=== PATIENT | female | born 1985 | race Caucasian/White ===

== ENCOUNTER 2017-04-06 15:57 | Inpatient (IN) ==
[2017-04-06] MEDS ORDERED: DINOPROSTONE VAG GEL 10 MG SYRINGE VAG ONE (16:19)
[2017-04-06] MEDS ORDERED: ONDANSETRON 4 MG/2 ML VIAL IV PRN ×2 (16:21→23:45)
[2017-04-06] MEDS ORDERED: MEPERIDINE 50 MG/1 ML VIAL IV PRN (16:21)
[2017-04-06] MEDS ORDERED: LACTATED RINGERS 500 ML IV PRN (16:21)
[2017-04-06] MEDS ORDERED: BUTORPHANOL 2 MG/ML VIAL IV PRN (16:21)
[2017-04-06] MEDS: LACTATED RINGERS 1,000 ML IV SCH ×2 (16:45→21:46)
[2017-04-06 16:52] LABS: Basophils # 0.1 10*3/uL (0.0-0.2); Basophils % 0.4 % (0.0-0.8); Eosinophils # 0.1 10*3/uL (0.0-0.87); Eosinophils % 0.9 % (0.00-10.9); Hemoglobin 11.8 GM/DL (12.0-16.0); Immature Granulocytes % 0.5 %; Immature Granulocytes Absolute 0.06 #; Lymphocytes # 2.4 10*3/uL (1.4-4.0); Lymphocytes % 21.2 % (21.3-54.2); Mean Corpuscular HGB Conc 33.7 GM/DL (32-36); Mean Corpuscular Hemoglobin 29 PG (27-34); Mean Corpuscular Volume 87.1 FL (87-102); Monocytes # 1.6 10*3/uL (0.11-0.8); Neutrophils # 7.1 10*3/uL (1.4-7.4); Platelet Count 263 T/CUMM (130-400); Red Blood Count 4.02 MC/CUMM (3.8-5.5); Red Cell Distribution Width 13.9 % (9.3-17.3); White Blood Count 11.3 T/CUMM (4-12)
[2017-04-06 17:24] LABS: Alanine Aminotransferase 11 U/L (13-56); Albumin 2.4 G/DL (3.4-5.0); Alkaline Phosphatase 151 U/L (45-117); Aspartate Amino Transferase 19 U/L (0-37); Bilirubin,Total < 0.39 MG/DL (0.2-1.0); Calcium 8.3 MG/DL (8.5-10.1); Total Protein 5.9 G/DL (6.4-8.3)
[2017-04-06 17:25] LABS: Blood Urea Nitrogen 8 MG/DL (7-18); Glucose 86 MG/DL (74-106); Osmolality,Calculated 275.4 MOS/KG (273-304); Sodium 140 MMOL/L (136-145)
--- NOTE | 2017-04-06 18:09 | OB/GYN History & Physical ---
History of Present Illness Chief complaint: In for elective induction of labor due to term . History of present illness: Ms. Sorto is a 32 year old female 3 para 1 AB 1. STEPHANIA is 04/13/2017 for estimated gestational age of 39 weeks. The patient presents for elective induction of labor due to term . The risk and benefits of been thoroughly discussed with this patient and significant other, plan of care has been discussed with Dr. Sheikh and all parties are in agreement plan. The patient received her care at the [facility] and she received routine care, her course was uneventful. Patient has had a previous vaginal delivery at 37 weeks of a liveborn that weighed 6 pounds and 8 ounces, she reported no complications with that . labs: She is O+, RPR is nonreactive, hepatitis B is negative, HIV is negative, rubella is immune, GBS culture is negative. Review of systems is negative with exception of above. Home Medications Medication Instructions Recorded Confirmed Type Vit No.130/Iron/Folic 1 each PO DAILY 04/06/17 04/06/17 History [ Vitamins] Allergies Allergy/AdvReac Type Severity Reaction Status Date / Time No Known Allergies Allergy Verified 04/06/17 16:19 12 point system: reviewed and no additional remarkable complaints except as stated Medical,Surgical,& Family Hx - Medical History Medical History: noncontributory Respiratory: History of: Asthma - Surgical History Surgical History: noncontributory Reproductive Surgeries: Patient denies;: Genitourinary Surgery - Family History Family History: Reports;: Family Cancer (mother- breast, melanoma), Family Hypertension (father), Family Stroke (pgf) Denies;: Family Anesthesia Reaction, Family Diabetes, Family Heart Disease, Family Hematology, Family Psychiatric Problems - Social History Smoking Status: Never smoker Frequency of Alcohol Use: None Type of Drug Use: None Marital Status: Lives With:: Spouse Functional capacity: independent ambulation 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 General appearance: no acute distress - Antepartum / Post Antepartum Exam Cervix - Dilatation: 1 cm Effacement: 50% Station: -2 Rupture: Intact Presentation: Vertex Heart Rate: 130s-140 [place]: Irregular uterine contractions Breast: bilateral: normal Abdomen obstetrics: Present: bowel sounds normal Vagina: Present: normal moisture Uterus exam: Present: enlarged - Head Head exam: Present: normal inspection - Respiratory Respiratory exam: Present: clear to auscultation bilaterally - Cardiovascular Cardiovascular exam: Present: regular rate and rhythm - GI/Abdominal GI/Abdominal exam: Present: normal bowel sounds, soft - Extremities Exam Extremities exam: Present: normal inspection - Neurological Exam Neurological exam: Present: alert, oriented X3 - Psychiatric Psychiatric exam: Present: normal affect, normal mood - Skin Skin exam: Present: normal color, warm Assessment and Plan (1) Term Status: Acute Assessment and plan: Admit Prostin gel per protocol IV Pitocin per protocol if indicated Artificial rupture membranes when appropriate Internal monitors if indicated Epidural anesthesia if desired Anticipate Current Visit: Yes Results - Labs CBC & BMP: 04/06/17 16:45 04/06/17 16:45
[2017-04-06] MEDS ORDERED: ALUMINUM/MAGNES/SIMETH MAX STR 30 ML UDCUP PO PRN (20:20)
[2017-04-06] MEDS ORDERED: hydrOXYzine HCL 25 MG/1 ML VIAL IM PRN (21:13)
[2017-04-06] MEDS ORDERED: fentaNYL 2 MCG/ROPIV 0.2% EPID 150 ML EPIDURAL SCH (21:13)
[2017-04-06] MEDS ORDERED: diphenhydrAMINE 50 MG/1 ML VIAL IV PRN (21:13)
[2017-04-06] MEDS ORDERED: PROMETHAZINE 25 MG/1 ML VIAL IM PRN (21:13)
[2017-04-06] MEDS ORDERED: ePHEDrine 50 MG/ML AMP IV PRN (21:13)
[2017-04-06] MEDS ORDERED: FAMOTIDINE 20 MG/2 ML VIAL IV ONE (21:15)
[2017-04-06] MEDS ORDERED: CITRIC ACID/SODIUM CITRATE 30 ML UDCUP PO ONE (21:16)
[2017-04-06] MEDS ORDERED: OXYTOCIN/LR 30 UNIT/1,000 ML BAG IV ONE (23:15)
[2017-04-06 23:41] LABS: Cord Arterial Blood HCO3 18.5 MMOL/L
[2017-04-06 23:43] LABS: Cord Venous Blood PCO2 51.3 MMHG; Cord Venous Blood PO2 14.3 MMHG
[2017-04-06] MEDS ORDERED: RHO(D) IMMUNE GLOBULIN 300 MCG SYRINGE IM ONE (23:45)
[2017-04-06] MEDS ORDERED: LANOLIN 50% CREAM 0.3 OZ TUBE TOP PRN (23:45)
[2017-04-06] MEDS ORDERED: oxyCODONE/ACETAMINOPHEN 5-325 MG TABLET PO PRN (23:45)
[2017-04-06] MEDS ORDERED: HYDROCORTISONE 2.5% RECTAL CREAM 30 GM TUBE TOP PRN (23:45)
[2017-04-06] MEDS ORDERED: ACETAMINOPHEN 325 MG TABLET PO PRN (23:45)
[2017-04-06] MEDS ORDERED: WITCH HAZEL PADS 100/JAR TOP PRN (23:45)
[2017-04-06] MEDS ORDERED: BISACODYL 10 MG SUPP RECTAL PRN (23:45)
[2017-04-06] MEDS ORDERED: BENZOCAINE 20%/MENTHOL 0.5% SPRAY 56 GM CAN TOP PRN (23:45)
[2017-04-06] MEDS ORDERED: DIPH/TET/ACEL PERT BOOSTER VACCINE 0.5 ML VIAL IM ONE (23:45)
[2017-04-06] MEDS ORDERED: MEASLES/MUMPS/RUBELLA VACCINE 0.5 ML VIAL SUBCUT ONE (23:45)
[2017-04-06] MEDS ORDERED: OXYTOCIN/LR 20 UNIT/1,000 ML BAG IV ONE (23:45)
--- NOTE | 2017-04-06 23:45 | Event Note ---
Delivery note Stage I Prostaglandin gel, 39 weeks IV fluids External monitoring Spontaneous rupture membranes clear fluid Epidural anesthetic Stage II Delivery at approximately 20 3:30 PM male infant Cord blood and cord gas Nuchal cord 1 weight pending Apgars 9 9 Stage III Second-degree laceration Spontaneous deliver the placenta at 2332 Cord blood was obtained Estimated blood loss was less than 300 cc Repair with 2-0 Vicryl 3-0 chromic Mother stable bonding very well
[2017-04-06 23:56] LABS: Apearance,Urine CLEAR (Clear); Bilirubin,Urine Negative (Negative); Blood, Urine Large mg/dL (Negative); Glucose,Urine (UA) Negative (Negative); Ketones,Urine Negative (Negative); Mucus,Urine Occasional /LPF (Occasional); Nitrite,Urine Negative (Negative); Protein,Urine Negative; RBC,Urine 21 /HPF (0-4); Urine Color Straw (Yellow); Urine Specific Gravity 1.008 (1.001-1.035); Urine Urobilinogen < 2.0 EU/DL (0.2-1.0); WBC,Urine 1 /HPF (0-6)
[2017-04-07] MEDS: IBUPROFEN 800 MG TABLET PO PRN ×3 (03:05→18:49)
[2017-04-07] MEDS: oxyCODONE/ACETAMINOPHEN 5-325 MG TABLET PO PRN ×5 (03:05→18:50)
[2017-04-07] MEDS: LACTATED RINGERS 1,000 ML IV SCH (03:06)
--- NOTE | 2017-04-07 06:18 | Anesthesia Post-Op ---
Anesthesia Post OP - Post Ansesthetic Evaluation Patient seen in post op: Yes Resp: within normal limits CV: within normal limits Mental: within normal limits Temp: within normal limits [id number]: within normal limits Nausea and Vomiting: within normal limits Pain: within normal limits
[2017-04-07 06:32] LABS: Eosinophils % 0.5 % (0.00-10.9); Hematocrit 30.7 VOL% (35.7-47.0); Hemoglobin 10.1 GM/DL (12.0-16.0); Lymphocytes % 18.3 % (21.3-54.2); Mean Corpuscular HGB Conc 32.9 GM/DL (32-36); Mean Corpuscular Hemoglobin 29 PG (27-34); Mean Corpuscular Volume 87.7 FL (87-102); Mean Platelet Volume 10.2 FL (9.6-12.0); Neutrophils % 69.1 % (38.7-73.9); Platelet Count 234 T/CUMM (130-400); Red Cell Distribution Width 14.1 % (9.3-17.3); White Blood Count 15.3 T/CUMM (4-12)
[2017-04-07 06:33] LABS: Basophils # 0.1 10*3/uL (0.0-0.2); Basophils % 0.4 % (0.0-0.8); Eosinophils # 0.1 10*3/uL (0.0-0.87); Immature Granulocytes % 0.7 %; Lymphocytes # 2.8 10*3/uL (1.4-4.0); Monocytes # 1.7 10*3/uL (0.11-0.8); Neutrophils # 10.6 10*3/uL (1.4-7.4)
--- NOTE | 2017-04-07 08:56 | OB/GYN Progress Note ---
Assessment and Plan (1) Term Status: Acute Assessment and plan: Admit Prostin gel per protocol IV Pitocin per protocol if indicated Artificial rupture membranes when appropriate Internal monitors if indicated Epidural anesthesia if desired Anticipate Current Visit: Yes (2) Vaginal delivery Status: Acute Assessment and plan: Initiate routine orders. 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 Bonding well with infant. 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 - Constitutional Vitals: Vital Signs Temp Pulse Resp BP Pulse Ox 04/07/17 08:00 98.0 F 75 18 121/70 98 04/07/17 05:41 20 04/07/17 04:00 98.1 F 77 20 120/58 99 04/07/17 00:00 97.8 F 88 18 143/67 04/06/17 20:00 97.9 F 85 20 168/63 General appearance: no acute distress - Antepartum / Post Post Exam Breast: bilateral: normal Abdomen obstetrics: Present: bowel sounds normal Vulva: bilateral: normal Vagina: Present: normal moisture, discharge (Moderate lochia rubra) Uterus exam: Present: enlarged (Fundus firm and midline) Anus/Rectum: Present: normal perianal skin - Head Head exam: Present: normal inspection - Respiratory Respiratory exam: Present: clear to auscultation bilaterally - Cardiovascular Cardiovascular exam: Present: regular rate and rhythm - GI/Abdominal GI/Abdominal exam: Present: normal bowel sounds, soft - Extremities Exam Extremities exam: Present: normal inspection - Back Exam Back exam: Present: normal inspection - Neurological Exam Neurological exam: Present: alert, oriented X3 - Psychiatric Psychiatric exam: Present: normal affect, normal mood - Skin Skin exam: Present: normal color, warm Results - Labs CBC & BMP: 04/07/17 06:01 04/06/17 16:45
[2017-04-07] MEDS: FERROUS SULFATE 325 MG TABLET PO SCH ×2 (09:05→22:00)
[2017-04-07] MEDS: DOCUSATE SODIUM 100 MG CAPSULE PO SCH ×2 (09:05→22:00)
[2017-04-07] MEDS ORDERED: oxyCODONE/ACETAMINOPHEN 5-325 MG TABLET PO PRN (11:40)
[2017-04-08] MEDS: IBUPROFEN 800 MG TABLET PO PRN (02:09)
[2017-04-08] MEDS: oxyCODONE/ACETAMINOPHEN 5-325 MG TABLET PO PRN (02:09)
[2017-04-08 07:47] VITALS: BP 93/60
[2017-04-08] MEDS: FERROUS SULFATE 325 MG TABLET PO SCH (09:31)
[2017-04-08] MEDS: DOCUSATE SODIUM 100 MG CAPSULE PO SCH (09:31)
--- NOTE | 2017-04-08 10:23 | Discharge Summary ---
Hospital Course - Hospital Course Hospital Course: Ms. Sorto presented for elective induction of labor. She subsequently delivered a viable infant with no complications. She has followed a normal course and she has done well. Her bleeding is minimal with no odor. Her vital signs and lab values are stable. Her fundus is firm and midline. She is voiding without difficulty. She denies any pain in her legs. She has had a normal bowel movement. She is bonding well with her . She will be discharged home prescriptions for pain and a follow-up appointment in our office. Diagnosis - Discharge Diagnosis (1) Term Status: Acute (2) Vaginal delivery Status: Acute Specialty Discharge - Follow Up or Referrals Follow up with: Alphonso Sheikh MD [Physician] - (Follow-up in 6 weeks) Discharge Plan - Discharge Data Disposition: Disch To Home/Self Care Condition at Discharge: Stable Discharge Diet: advance to your usual diet, regular diet Activity: resume usual activities as tolerated - Discharge Medications No Action Vit No.130/Iron/Folic [ Vitamins] 1 each PO DAILY - Follow Up or Referral - Forms/Instructions Exam - Constitutional Vitals: Period Temp Pulse Resp BP Sys/Toth Pulse Ox Last 24 Hr 97.1 F-98.1 F 81-105 17-20 93-125/60-77 98-98 General appearance: no acute distress - Head Head exam: Present: normal inspection - Respiratory Respiratory exam: Present: clear to auscultation bilaterally - Cardiovascular Cardiovascular exam: Present: regular rate and rhythm - GI/Abdominal GI/Abdominal exam: Present: normal bowel sounds, soft - Extremities Exam Extremities exam: Present: normal inspection - Back Exam Back exam: Present: normal inspection - Neurological Exam Neurological exam: Present: alert, oriented X3 - Psychiatric Psychiatric exam: Present: normal affect, normal mood - Skin Skin exam: Present: normal color, warm DS: Provider Date of admission: 04/06/17 15:57 Primary care physician: . No PCP Attending physician on admission: Alphonso Sheikh MD Consults: 04/06/17 16:21 Consult to Anesthesiology [CONS] Routine Consulting Provider: Reason for Anesthesiology: Epidural Consult Comment: Epidural for pain managment 04/06/17 23:45 Consult to [employer] [CONS] Routine Consult [employer] Officer: Breast Feeding Discharging clinician: Vita Munson CNM Expected date of discharge: 04/08/17
== END 2017-04-08 13:20 | disposition home or self-care (01) | DRG 775 ==
LOC: N.LD 15:57 → N.OB 04-07 02:33
PROVIDERS: ADMIT Obstetrics & Gynecology; ATTEND Obstetrics & Gynecology

== ENCOUNTER 2020-04-09 05:37 | Inpatient (IN) ==
[2020-04-09] MEDS ORDERED: AMPICILLIN/SULBACTAM 3,000 MG in SODIUM CHLORIDE 0.9% 100 ML IV ONE (06:00)
[2020-04-09] MEDS ORDERED: AMPICILLIN/SULBACTAM 3,000 MG VIAL ONE (06:20)
[2020-04-09] MEDS ORDERED: ePHEDrine 50 MG/ML VIAL ONE (06:40)
[2020-04-09] MEDS: LACTATED RINGERS 1,000 ML IV SCH ×4 (06:43→18:00)
[2020-04-09] MEDS ORDERED: ACETAMINOPHEN 325 MG TABLET PO PRN (09:22)
[2020-04-09] MEDS ORDERED: BISACODYL 10 MG SUPP RECTAL PRN (09:22)
[2020-04-09] MEDS ORDERED: ONDANSETRON 4 MG/2 ML VIAL IV PRN ×2 (09:22→09:36)
[2020-04-09] MEDS ORDERED: MAGNESIUM HYDROXIDE SUSP 30 ML UDCUP PO PRN (09:22)
[2020-04-09] MEDS ORDERED: DOCUSATE SODIUM 100 MG CAPSULE PO PRN (09:22)
[2020-04-09] MEDS ORDERED: BENZOCAINE/MENTHOL LOZENGE 18/BOX PO PRN (09:22)
[2020-04-09] MEDS ORDERED: HYDROmorphone 2 MG/1 ML VIAL IV PRN (09:25)
[2020-04-09] MEDS ORDERED: MIDAZOLAM 2 MG/2 ML VIAL ONE (09:32)
[2020-04-09] MEDS ORDERED: LIDOCAINE 2% 5 ML VIAL ONE (09:32)
[2020-04-09] MEDS ORDERED: SEVOFLURANE 1 UNIT/15 MINUTE INH ONE (09:32)
[2020-04-09] MEDS ORDERED: propofoL 200 MG/20 ML VIAL IV ONE (09:32)
[2020-04-09] MEDS ORDERED: PHENYLEPHRINE 1 MG/10 ML SYRINGE IV ONE (09:33)
[2020-04-09] MEDS ORDERED: GLYCOPYRROLATE 0.4 MG/2 ML VIAL ONE (09:33)
[2020-04-09] MEDS ORDERED: ONDANSETRON 4 MG/2 ML VIAL ONE ×2 (09:33→09:37)
[2020-04-09] MEDS ORDERED: SUFentanil 50 MCG/ML AMP ONE (09:33)
[2020-04-09] MEDS ORDERED: LACTATED RINGERS 1,000 ML IV ONE (09:33)
[2020-04-09] MEDS ORDERED: DEXAMETHASONE 4 MG/1 ML VIAL ONE (09:33)
[2020-04-09] MEDS ORDERED: ROCURONIUM 100 MG/10 ML VIAL IV ONE (09:33)
[2020-04-09] MEDS ORDERED: NEOSTIGMINE 10 MG/10 ML VIAL ONE (09:33)
[2020-04-09 09:36] LABS: Apearance,Urine CLEAR (Clear); Bilirubin,Urine Negative (Negative); Blood, Urine Small mg/dL (Negative); Glucose,Urine (UA) Negative (Negative); Ketones,Urine Negative (Negative); Mucus,Urine Occasional /LPF (Occasional); Nitrite,Urine Negative (Negative); Protein,Urine Negative; RBC,Urine 2 /HPF (0-4); Squamous Epithelial Cell,Urine Occasional /HPF (0-10); Urine Color Yellow (Yellow); Urine Specific Gravity 1.014 (1.001-1.035); Urine Urobilinogen < 2.0 EU/DL (0.2-1.0)
[2020-04-09] MEDS ORDERED: HYDROmorphone 2 MG/1 ML VIAL ONE (09:37)
[2020-04-09] MEDS: HYDROmorphone 2 MG/1 ML VIAL IV PRN ×6 (09:40→15:00)
[2020-04-09] MEDS ORDERED: LACTATED RINGERS 1,000 ML IV SCH (12:00)
[2020-04-09] MEDS: ceFAZolin 1,000 MG in SYRINGE 1 EACH IV SCH (16:55)
[2020-04-09 17:58] LABS: Basophils % 0.1 % (0.0-0.8); Hematocrit 35.7 VOL% (35.7-47.0); Hemoglobin 11.7 GM/DL (12.0-16.0); Immature Granulocytes % 0.4 %; Immature Granulocytes Absolute 0.05 #; Lymphocytes % 8.2 % (21.3-54.2); Mean Corpuscular HGB Conc 32.8 GM/DL (32-36); Mean Corpuscular Volume 88.8 FL (87-102); Mean Platelet Volume 8.8 FL (9.6-12.0); Monocytes % 3.6 % (1.7-12.7); Neutrophils % 87.7 % (38.7-73.9); Platelet Count 362 T/CUMM (130-400); Red Blood Count 4.02 MC/CUMM (3.8-5.5); Red Cell Distribution Width 12.6 % (9.3-17.3); White Blood Count 11.7 T/CUMM (4-12)
[2020-04-09] MEDS: IBUPROFEN 800 MG TABLET PO PRN (20:37)
[2020-04-09] MEDS: SIMETHICONE CHEW 80 MG TABLET PO PRN (20:38)
[2020-04-10] MEDS: SIMETHICONE CHEW 80 MG TABLET PO PRN ×2 (02:17→09:30)
[2020-04-10] MEDS: ceFAZolin 1,000 MG in SYRINGE 1 EACH IV SCH (02:18)
[2020-04-10] MEDS: IBUPROFEN 800 MG TABLET PO PRN ×2 (04:57→13:41)
[2020-04-10 05:49] LABS: Basophils # 0.1 10*3/uL (0.0-0.2); Basophils % 0.4 % (0.0-0.8); Eosinophils % 0.2 % (0.00-10.9); Hematocrit 32.9 VOL% (35.7-47.0); Immature Granulocytes % 0.4 %; Immature Granulocytes Absolute 0.05 #; Lymphocytes # 3.3 10*3/uL (1.4-4.0); Lymphocytes % 25.3 % (21.3-54.2); Mean Corpuscular HGB Conc 33.4 GM/DL (32-36); Mean Platelet Volume 8.9 FL (9.6-12.0); Monocytes % 8.1 % (1.7-12.7); Neutrophils % 65.6 % (38.7-73.9); Platelet Count 341 T/CUMM (130-400); Red Blood Count 3.74 MC/CUMM (3.8-5.5); Red Cell Distribution Width 12.8 % (9.3-17.3); White Blood Count 12.9 T/CUMM (4-12)
[2020-04-10 07:31] LABS: Hypochromasia 1+; Microcytosis Slight; Platelet Estimate Adequate
[2020-04-10] MEDS: LACTATED RINGERS 1,000 ML IV SCH ×2 (08:07→13:44)
[2020-04-10] MEDS: oxyCODONE/ACETAMINOPHEN 5-325 MG TABLET PO PRN ×2 (16:01→21:41)
[2020-04-11] MEDS: IBUPROFEN 800 MG TABLET PO PRN ×2 (03:05→11:08)
[2020-04-11] MEDS: SIMETHICONE CHEW 80 MG TABLET PO PRN (03:05)
[2020-04-11] MEDS: oxyCODONE/ACETAMINOPHEN 5-325 MG TABLET PO PRN ×2 (07:26→13:32)
[2020-04-11 11:33] VITALS: BP 103/65
== END 2020-04-11 14:40 | disposition home or self-care (01) | DRG 743 ==
LOC: N.OR 05:37 → N.SDSINP 05:40 → N.OB 09:21
PROVIDERS: ADMIT Obstetrics & Gynecology; ATTEND Obstetrics & Gynecology